=== PATIENT | female | born 1975 | race African-American/Black ===

== ENCOUNTER 2022-01-21 14:47 | Emergency (ER) | payer OTHER, SELFPAY ==
--- NOTE | ~2022-01-21 | XR_ITS ---
EXAMINATION: XR chest 2 view Exam Date/Time: 01/21/2022 15:30 CDT CLINICAL HISTORY: Cough, shortness of breath, history of pneumonia. Comparison: None. RESULT: Lines, tubes, and devices: None. Lungs and pleura: Clear. Cardiomediastinal silhouette: Normal cardiomediastinal silhouette. Other: No acute osseous or upper abdominal finding. IMPRESSION: No acute cardiopulmonary process. Specifically, there is no radiographic evidence of pneumonia. Reviewed, dictated and finalized at location K. IMPRESSION: No acute cardiopulmonary process. Specifically, there is no radiographic eviden ce of pneumonia.
--- NOTE | 2022-01-21 14:54 | ED.URI ---
HPI - URI/Sore Throat General Chief Complaint: Upper Respiratory Infection Stated Complaint: fatigue difficult breathing feels not well Time Seen by Provider: 01/21/22 14:50 Source: patient and RN notes reviewed History of Present Illness HPI Narrative: Patient is a 46-year-old female who presents the urgent care with complaints of fatigue, shortness of breath and headache. Patient states her symptoms started this morning and she has had on and off chills without known fever. Patient was recently on doxycycline and Augmentin on November 26 for pneumonia and then prescribed levofloxacin and amoxicillin on December 27 for recurrent infection. Patient denies of any cough. Denies of any ill contacts. Patient shows no visible signs of shortness of breath/distress. No other acute complaints. Patient is requesting a chest x-ray. Patient aware of the plan of care. Some parts of this dictation were generated by voice recognition software and may contain typographical and/or grammatical inaccuracies. Related Data Home Medications Medication Instructions Recorded Confirmed olmesartan 20 mg tablet 20 mg PO DAILY 05/19/21 01/21/22 alprazolam 0.25 mg PO DAILY PRN 01/21/22 01/21/22 omeprazole 40 mg PO DAILY 01/21/22 01/21/22 Allergies Allergy/AdvReac Type Severity Reaction Status Date / Time Sulfa (Sulfonamide Allergy Mild Itching Verified 01/21/22 15:14 Antibiotics) morphine AdvReac Mild Nausea and Verified 01/21/22 15:14 Vomiting Review of Systems Review of Systems: CONSTITUTIONAL: Reports of chills and fatigue EYES: Denies visual changes, redness, or discharge. ENT: Denies rhinorrhea, congestion, sore throat, or otalgia. CARDIOVASCULAR: Denies chest pain, palpitations, or edema. RESPIRATORY: Reports of dyspnea without cough GASTROINTESTINAL: Denies abdominal pain, nausea, vomiting, or diarrhea. GENITOURINARY: Denies dysuria or hematuria. SKIN: Denies rash or itching. MUSCULOSKELETAL: Denies back pain, joint pain, or myalgia. NEUROLOGIC: Reports of headache All other systems reviewed are negative, except as documented in HPI. [facility] Past Medical History Medical History (Updated 01/21/22 @ 16:19 by EVARISTO Will) Allergies Anxiety Arthritis GERD (gastroesophageal reflux disease) Hypertension Family History Family History (Updated 05/19/21 @ 11:39 by Ely Dash MA) Mother Diabetes mellitus Hypertension Father Diabetes mellitus Hypertension Heart disease Grandparent Alcoholism Grandparent Alcoholism Social History Social History (Updated 05/19/21 @ 11:35 by Ely Dash MA) Smoking status: Current every day smoker Tobacco type: cigarettes Alcohol intake: never Substance use: never Comments At the time of my signature, I reviewed and agree with the nursing past medical, surgical, social, and family history. There is no relevant family history pertinent to the patient complaint. Exam Narrative: GENERAL: This is a well-nourished, well-developed patient, in no apparent distress. HEAD: normocephalic, atraumatic. EYES: PERRL. Sclera clear/white. Vision is grossly intact. EARS: External ears normal, auditory canals clear and without drainage, TMs normal without perforation. Hearing grossly intact. NOSE: External nose normal with no obvious nasal discharge, nares without redness, no rhinorrhea. THROAT: Mucous membranes moist, posterior pharynx clear. NECK: Neck supple CARDIOVASCULAR: Regular rate and rhythm without murmurs, gallops, or rubs. RESPIRATORY: Clear to auscultation. Slightly diminished right lower lobe. No wheezes, rales, or rhonchi. SKIN: warm, intact with no suspicious lesions or rash, good texture and turgor. NEURO: awake, alert, and oriented to person, place and time. There were no obvious focal neurologic abnormalities. EXTREMITIES: No clubbing, cyanosis, or edema. Course Course Level of Care: Express Care Visit Vital Signs Vital signs: Vital Signs Temp
[2022-01-21 14:55] VITALS: BP 128/75; PULSE 93; RESP 16; TEMP 36.6; O2SAT 100
== END 2022-01-21 16:22 | disposition home or self-care (01) ==
PROVIDERS: Emergency Provider Nurse Practitioner Family
DX: M19.90 Unspecified osteoarthritis, unspecified site (principal); K21.9 Gastro-esophageal reflux disease without esophagitis; I10 Essential (primary) hypertension; F17.210 Nicotine dependence, cigarettes, uncomplicated; F41.9 Anxiety disorder, unspecified
CPT/HCPCS: 71046; 87804; 99213; G0463